=== PATIENT | male | born 1950 | race Caucasian/White ===

== ENCOUNTER 2017-11-03 16:10 | Emergency (ER) | payer OTHER ==
[2017-11-03 16:15] VITALS: BMI 30.4
[2017-11-03] MEDS ORDERED: SODIUM CHLORIDE 0.9% 1000 ML INFUS.BAG IV STA (16:47)
[2017-11-03] MEDS ORDERED: ACETAMINOPHEN 1000 MG/100 ML VIAL (NON FORMULARY) IVPB ONE (16:49)
[2017-11-03] MEDS ORDERED: ACETAMINOPHEN INJECTION 100 ML IVPB ONE (16:56)
--- NOTE | 2017-11-03 17:01 | PDOC ---
History of Present Illness - General Chief Complaint: Shortness of Breath Stated Complaint: SHORTNESS OF BREATH Time Seen by Provider: 11/03/17 16:50 - History of Present Illness Initial Comments: 11/03/17 17:01 66 yo M with h/o MD s/p triple artery CABG (2005), DM who p/w SOB. Pt. with acute onset SOB, chills, and tremulousness while at home following PO intake of fast food. States that he ate food, went to lay down in bed, and developed symptoms for one hour. Reports one episode of bilious non bloody emesis in waiting room. Patient states that he feels better after vomiting. Currently denies SOB or tremors. Reports intermittent urinary frequency. Denies F/C, orthopnea, palpitations, cough, wheezing, leg swelling/pain, N/V, CP , SOB, abdominal pain, diarrhea, constipation, BPR, urinary complaints, hematuria, weakness, lightheadedness, sensory changes. PMHx: as noted above. PMD Dr. Taveras. Cardiology Dr. Wise. Denies h/o PE/DVT, malignancy. Denies recent surgery or trauma. ROS: as noted above SHx: Tobacco cessation x 12 years. Intermittent Etoh. Denies IVDA. Denies recent travel, or prolonged immobilization. Allergies: NKDA Past History - Past Medical History Allergies/Adverse Reactions: Allergies Allergy/AdvReac Type Severity Reaction Status Date / Time No Known Allergies Allergy Verified 11/03/17 16:15 Home Medications: Ambulatory Orders Carvedilol [Coreg] 0 mg PO DAILY 11/03/17 Insulin Glargine,Hum.rec.anlog [Epi Mendoza] 40 unit SQ AM 11/03/17 Metformin HCl 0 mg PO DAILY 11/03/17 Ramipril 0 mg PO DAILY 11/03/17 Simvastatin [Zocor -] 0 mg PO DAILY 11/03/17 Cardiac Disorders: Yes COPD: No Diabetes: Yes - Surgical History Cardiac Surgery: Yes (bypass 12 years ago) - Suicide/Smoking/Psychosocial Hx Smoking History: Never smoked Review of Systems - Review of Systems Comments:: 11/03/17 17:01 GENERAL/CONSTITUTIONAL: No fever or chills. No weakness. HEAD, EYES, EARS, NOSE AND THROAT: No change in vision. No ear pain or discharge. No sore throat. CARDIOVASCULAR: No chest pain or shortness of breath RESPIRATORY: No cough, wheezing, or hemoptysis. GASTROINTESTINAL: No nausea, vomiting, diarrhea or constipation. GENITOURINARY: No dysuria, frequency, or change in urination. MUSCULOSKELETAL: No joint or muscle swelling or pain. No neck or back pain. SKIN: No rash NEUROLOGIC: No headache, vertigo, loss of consciousness, or change in strength/ sensation. ENDOCRINE: No increased thirst. No abnormal weight change HEMATOLOGIC/LYMPHATIC: No anemia, easy bleeding, or history of blood clots. ALLERGIC/IMMUNOLOGIC: No hives or skin allergy. *Physical Exam - Vital Signs Last Vital Signs Temp Pulse Resp BP Pulse Ox 102.3 F H 113 H 20 132/77 94 L 11/03/17 16:12 11/03/17 16:12 11/03/17 16:12 11/03/17 16:12 11/03/17 16:12 - Physical Exam Comments: 11/03/17 17:01 GENERAL: Awake, alert, and fully oriented, in no acute distress HEAD: No signs of trauma, normocephalic, atraumatic EYES: PERRLA, EOMI, sclera anicteric, conjunctiva clear ENT: Auricles normal inspection, hearing grossly normal, nares patent, oropharynx clear without exudates. Moist mucosa NECK: Normal ROM, supple, no lymphadenopathy, JVD, or masses LUNGS: No distress, speaks full sentences, clear to auscultation bilaterally HEART: Regular rate and rhythm, normal S1 and S2, no murmurs, rubs or gallops, peripheral pulses normal and equal bilaterally. ABDOMEN: Soft, nontender, normoactive bowel sounds. No guarding, no rebound. No masses EXTREMITIES : Normal inspection, Normal range of motion, no edema. No clubbing or cyanosis. NEUROLOGICAL: Cranial nerves II through XII grossly intact. Normal speech, normal gait, no focal sensorimotor deficits SKIN: Warm, Dry, normal turgor, no rashes or lesions noted ED Treatment Course - LABORATORY CBC & Chemistry Diagram: 11/03/17 17:00 11/03/17 17:00 Medical Decision Making - Medical Decision Making 11/03/17 17:07 66 yo M with h/o MD s/p triple artery CABG (2005), DM who p/w SOB, and tremors. 3/4 SIRS, 94%O2 RA, HR 114, Oral Temp 102.3. ACS/MD r/o. R/o PE. Patient PERC POS with moderate risk PE. Will assess for electrolyte abnml, toxic or metabolic derangements,acid-base disturbances, or underlying infection. ED Course: Lactic Acid 2.5 WBC: 10.4 EKG: Sinus tachycardia with LVH. Old TWI lead II, AvF. Nml interval duration and axis. 11/03/17 18:04 UA: Neg CK: 358 Trop: Neg 11/03/17 18:05 BNP :348 11/03/17 20:50 CTA: No evidence of PE, infiltrate, pleural effusion, or nodule. 11/03/17 21:05 Repeat lactic acid 1.7 Pt. stable for d/c with return precautions. Advised to f/u with PMD. *DC/Admit/Observation/Transfer Diagnosis at time of Disposition: Fever of undetermined origin - Discharge Dispostion Disposition: HOME Condition at time of disposition: Stable Decision to Admit order: No - Referrals Referrals: Louie Taveras MD [Staff Physician] - - Patient Instructions Printed Discharge Instructions: Fever of Unknown Origin Additional Instructions: Please return to the emergency department with any new or worsening symptoms or concerns. Please follow up with your primary care physician within 72 hours. - Post Discharge Activity - Attestations Physician Attestion: 11/03/17 21:06 I attest to the information provided in this note.
[2017-11-03 17:12] LABS: BASO % 0.5 % (0-2.0); EOS % 0.6 % (0-4.5); HEMATOCRIT 43.9 % (35.4-49); HEMOGLOBIN 14.8 GM/dL (11.7-16.9); LYMPH % 25.5 % (8-40); MCH 30.8 pg (25.7-33.7); MCHC 33.6 g/dl (32.0-35.9); MEAN CELL VOLUME 91.6 fl (80-96); MEAN PLT VOLUME 8.4 fl (7.5-11.1); MONO % 1.4 % (3.8-10.2); PLATELET COUNT 182 K/MM3 (134-434); RDW 13.8 % (11.9-15.9); VENOUS PC02 43.8 mmHg (38-52); VENOUS PH 7.41 (7.32-7.42); WHITE BLOOD COUNT 10.4 K/mm3 (4.0-10.0)
[2017-11-03 17:33] LABS: INR 1.08 (0.82-1.09); PROTHROMBIN TIME (PATIENT) 12.2 SEC (9.7-13.0)
[2017-11-03 17:35] LABS: ALBUMIN 3.6 g/dl (3.4-5.0); ALK PHOS 43 U/L (45-117); ANION GAP 9 (8-16); BILIRUBIN,TOTAL 0.5 mg/dL (0.2-1.0); BLOOD UREA NITROGEN 16 mg/dL (7-18); CALCIUM 9.1 mg/dL (8.5-10.1); CHLORIDE 104 mmol/L (98-107); CO2 27 mmol/L (21-32); CREATININE 1.1 mg/dL (0.7-1.3); GLUCOSE,RANDOM 187 mg/dL (74-106); POTASSIUM 3.8 mmol/L (3.5-5.1); SGOT/AST 16 U/L (15-37); SGPT/ALT 26 U/L (12-78); SODIUM 140 mmol/L (136-145); TOT PROT 7.5 g/dl (6.4-8.2)
[2017-11-03 17:39] LABS: URINE APPEARANCE CLEAR; URINE BILIRUBIN NEGATIVE (<2.0 mg/dL); URINE COLOR YELLOW; URINE GLUCOSE (UA) 2+ (NEGATIVE); URINE KETONE NEGATIVE (NEGATIVE); URINE LEUK ESTERASE NEGATIVE (NEGATIVE); URINE NITRITE NEGATIVE (NEGATIVE); URINE UROBILINOGEN NEGATIVE mg/dL (0.2-1.0)
[2017-11-03 17:46] LABS: URINE PROTEIN 1+ (NEGATIVE)
[2017-11-03 17:47] LABS: EPI CELLS RARE /HPF (FEW); URINE MUCUS RARE
[2017-11-03] MEDS ORDERED: IBUPROFEN 800 MG/8 ML IJ IVPB ONE (18:15)
[2017-11-03] MEDS ORDERED: IBUPROFEN 400 MG TABLET (FP) PO ONE ×2 (18:17→18:19)
[2017-11-03 21:04] VITALS: BP 107/63; PULSE 82; TEMP 98.4
--- NOTE | 2017-11-03 21:20 | PDOC ---
Attending Attestation - Resident Resident Name: Umberto Lewis - ED Attending Attestation I have performed the following: I have examined & evaluated the patient, The case was reviewed & discussed with the resident, I agree w/resident's findings & plan, Exceptions are as noted - HPI HPI: 11/03/17 21:20 66 yo male dev fever and chills today, vomited, denies any abd pain but felt short of breath but denies any chest pain - Physicial Exam PE: 11/03/17 21:21 wnwd 66 yo male with fever,vomited head ncat neck supple lungs cta b/l cvs tachy abd no rebound,no guarding ext no edema skin warm and dry neuro ambulatory, axox3 - Medical Decision Making 11/03/17 21:22 review of labs cbc wnl chemistry kwv=[id number], pt diabetic trop negative fever responded to tylenol cta chest no PE,no pneumnia, no dissection
--- NOTE | 2017-11-04 13:36 | PDOC ---
*Physical Exam - Vital Signs Last Vital Signs Temp Pulse Resp BP Pulse Ox 98.4 F 82 16 107/63 97 11/03/17 21:03 11/03/17 21:03 11/03/17 21:03 11/03/17 21:03 11/03/17 21:03 - Physical Exam Comments: 11/04/17 13:35 1334hrs: Called Mr. Hayden [phone] to return to the ER for admission +gram Negative rods in blood culture ED Treatment Course - LABORATORY CBC & Chemistry Diagram: 11/03/17 17:00 11/03/17 17:00 - ADDITIONAL ORDERS Additional order review: 11/03/17 17:00 Blood Culture - Preliminary Blood - Peripheral Venous Pending Organism 11/03/17 17:00 Blood Culture - Preliminary Blood - Peripheral Venous Pending Organism 11/03/17 17:00 RBC 4.80 MCV 91.6 MCHC 33.6 RDW 13.8 MPV 8.4 Neutrophils % 72.0 Lymphocytes % 25.5 Monocytes % 1.4 L Eosinophils % 0.6 Basophils % 0.5 - Medications Given in the ED: ED Medications Discontinued Medications Generic Name Dose Route Start Last Admin Trade Name Freq PRN Reason Stop Dose Admin Acetaminophen 1,000 mg 11/03/17 16:49 11/03/17 17:08 Ofirmev Injection - IVPB 11/03/17 16:50 1,000 mg ONCE ONE Administration Ibuprofen 800 mg 11/03/17 18:19 11/03/17 18:21 Motrin - PO 11/03/17 18:20 800 mg Q8H ONE Administration Sodium Chloride 2,722 ml 11/03/17 16:47 11/03/17 17:07 Normal Saline - 30 ml/kg (2722 ml) 11/03/17 16:48 2,722 ml IV Administration ONCE STA *DC/Admit/Observation/Transfer Diagnosis at time of Disposition: Fever of undetermined origin - Discharge Dispostion Disposition: HOME Condition at time of disposition: Stable - Referrals Referrals: Louie Taveras MD [Staff Physician] - - Patient Instructions Printed Discharge Instructions: Fever of Unknown Origin Additional Instructions: Please return to the emergency department with any new or worsening symptoms or concerns. Please follow up with your primary care physician within 72 hours. - Post Discharge Activity
--- NOTE | 2017-11-04 23:52 | EKG ---
Test Reason : Blood Pressure : / mmHG Vent. Rate : 113 BPM Atrial Rate : 113 BPM P-R Int : 132 ms QRS Dur : 080 ms QT Int : 306 ms P-R-T Axes : 025 -02 030 degrees QTc Int : 419 ms SINUS TACHYCARDIA MINIMAL VOLTAGE CRITERIA FOR LVH, MAY BE NORMAL VARIANT INFERIOR INFARCT , AGE UNDETERMINED ABNORMAL ECG WHEN COMPARED WITH ECG OF 16-NOV-2005 12:26, SINUS RHYTHM HAS REPLACED WIDE QRS RHYTHM Confirmed by KELECHI PATEL, MINDI ([id number]) on 11/04/2017 11:51:33 PM Referred By: Confirmed By:MINDI LORENZ MD
== END 2017-11-03 21:41 | disposition home or self-care (01) ==
LOC: JER 16:10
PROC: 3E033NZ Introduction of Analgesics, Hypnotics, Sedatives into Peripheral Vein, Percutaneous Approach (ICD-10-PCS; principal; 2017-11-03)
PROC: 3E0337Z Introduction of Electrolytic and Water Balance Substance into Peripheral Vein, Percutaneous Approach (ICD-10-PCS; 2017-11-03)
DX: R50.9 Fever, unspecified (principal); E11.9 Type 2 diabetes mellitus without complications; Z79.4 Long term (current) use of insulin; Z79.84 Long term (current) use of oral hypoglycemic drugs; Z95.1 Presence of aortocoronary bypass graft
CPT/HCPCS: 36415; 71045-TC-FY; 71275-TC; 80053; 81003; 81015; 82550; 82553; 82803; 83605; 83880; 84484; 85025; 85610; 85730; 87040; 87086; 87186; 93005; 93010; 99285-25; J0131; J7030